=== PATIENT | female | born 1975 | race Two or more races ===

== ENCOUNTER 2017-07-07 07:44 | Emergency (ER) | payer OTHER ==
[2017-07-07] MEDS ORDERED: NAPROXEN 500 MG TABLET (FP) PO ONE (07:55)
[2017-07-07] MEDS ORDERED: CYCLOBENZAPRINE HCL 5 MG TABLET PO ONE (07:55)
--- NOTE | 2017-07-07 08:05 | PDOC ---
History of Present Illness - General Chief Complaint: Pain Stated Complaint: RT UPPER BACK PAIN Time Seen by Provider: 07/07/17 07:55 History Source: Patient Exam Limitations: No Limitations - History of Present Illness Initial Comments: 07/07/17 07:56 41 yo F c/ no pmh p/w right upper back spasm. 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 Better with rest, worsen with movement of back, neck, and right upper extremity. Denies numbness, weakness. Denies chest pain, SOB. Took 200 mg ibuprofen yesterday night with minimal relief. Past History - Past Medical History Allergies/Adverse Reactions: Allergies Allergy/AdvReac Type Severity Reaction Status Date / Time No Known Allergies Allergy Unverified 07/07/17 07:46 Home Medications: Ambulatory Orders Cyclobenzaprine HCl [Flexeril 10 mg] 10 mg PO Q8H PRN #21 tablet 07/07/17 Ibuprofen [Advil -] 200 mg PO PRN PRN 07/07/17 Naproxen 500 mg PO BID PRN #20 tablet 07/07/17 Review of Systems - Review of Systems Able to Perform ROS?: Yes Comments:: 07/07/17 08:05 GENERAL/CONSTITUTIONAL: No fever, weakness. HEAD, EYES, EARS, NOSE AND THROAT: No change in vision. No ear pain or discharge. No sore throat. CARDIOVASCULAR: No chest pain or shortness of breath. RESPIRATORY: No cough, wheezing, or hemoptysis. GASTROINTESTINAL: No abdominal pain, nausea, vomiting, diarrhea, or decreased PO intolerance. GENITOURINARY: No dysuria, frequency, or change in urination. MUSCULOSKELETAL: No joint or muscle swelling or pain. No neck pain. + back pain. SKIN: No rash NEUROLOGIC: No headache, vertigo, loss of consciousness, or change in strength/ sensation. ENDOCRINE: No increased thirst. No abnormal weight change. HEMATOLOGIC/LYMPHATIC: No anemia, easy bleeding, or history of blood clots. ALLERGIC/IMMUNOLOGIC: No hives or skin allergy. *Physical Exam - Physical Exam Comments: 07/07/17 08:07 GENERAL: Awake, alert, and fully oriented, in no acute distress. HEAD: No signs of trauma EYES: PERRLA, EOMI, sclera anicteric, conjunctiva clear ENT: Auricles normal inspection, hearing grossly normal, nares patent NECK: Normal ROM, supple BACK: TTP right upper back, reproducible with movements. RUE: 2+ radial pulse. Sensation and strength intact in median/radian/ulnar distribution. EXTREMITIES: Normal range of motion, no edema. No clubbing or cyanosis. No cords, erythema, or tenderness NEUROLOGICAL: Cranial nerves II through XII grossly intact. Normal speech, normal gait SKIN: Warm, Dry, normal turgor, no rashes or lesions noted. Medical Decision Making - Medical Decision Making 07/07/17 08:07 The H&P is consistent with upper back spasm. NSAIDS, muscle relaxants Heat pack. Time off from work 07/07/17 09:10 Pt reports feeling better. F/u with PMD I discussed the physical exam findings, ancillary test results and final diagnoses with the patient. I answered all of the patient's questions. The patient was satisfied with the care received and felt comfortable with the discharge plan and treatment plan. The patient will call their primary care physician within 24 hours to arrange follow-up and will return to the Emergency Department with any new, persistant or worsening symptoms. *DC/Admit/Observation/Transfer Diagnosis at time of Disposition: Back spasm - Discharge Dispostion Disposition: HOME Condition at time of disposition: Stable Decision to Admit order: No - Prescriptions Prescriptions: Cyclobenzaprine HCl [Flexeril 10 mg] 10 mg PO Q8H PRN #21 tablet PRN Reason: Muscle Spasms Naproxen 500 mg PO BID PRN #20 tablet PRN Reason: Pain - Referrals - Patient Instructions Printed Discharge Instructions: DI for Back Spasm Additional Instructions: Please take 500 mg naproxen every 12 hours as needed for pain. For additional relief, take a tablet of flexeril (muscle relaxant) every 8 hours as needed. Please be careful when taking this medication as it may make you drowsy. Drink plenty of fluids and rest. Use heat backs several times a day for several minutes at a time for your back. It will take several days before symptoms resolve. Please call your doctor and schedule a follow up appointment. - Post Discharge Activity Forms/Work/School Notes: Back to Work
[2017-07-07 08:06] VITALS: BP 103/69; PULSE 81; TEMP 98.4; BMI 25.7
[2017-07-07] MEDS ORDERED: CYCLOBENZAPRINE HCL 10 MG TABLET (FP) ONE (08:25)
[2017-07-07] MEDS ORDERED: NAPROXEN 500 MG TABLET (FP) ONE (08:25)
== END 2017-07-07 09:20 | disposition home or self-care (01) ==
LOC: FER 07:44
DX: M62.830 Muscle spasm of back (principal)
CPT/HCPCS: 84703; 99282-25

== ENCOUNTER 2019-03-13 07:57 | Inpatient (IN) | payer OTHER ==
[2019-03-13] MEDS ORDERED: ACETAMINOPHEN 1000 MG/100 ML VIAL (NON FORMULARY) IVPB ONE (08:35)
[2019-03-13] MEDS ORDERED: METOCLOPRAMIDE HCL INJECTION 10 MG/2 ML VIAL IVPUSH ONE (08:35)
[2019-03-13] MEDS ORDERED: SODIUM CHLORIDE 0.9% 1000 ML INFUS.BAG IV ONE (08:36)
[2019-03-13 08:38] LABS: BASO % 1.6 % (0-2.0); EOS % 1.3 % (0-4.5); HEMATOCRIT 40.7 % (32.4-45.2); HEMOGLOBIN 13.7 GM/dl (10.7-15.3); LYMPH % 22.9 % (8-40); MCHC 33.6 g/dl (32.0-36.0); MEAN CELL VOLUME 89.1 fl (80-96); MEAN PLT VOLUME 7.7 fl (7.5-11.1); MONO % 9.5 % (3.8-10.2); NEUT % 64.7 % (42.8-82.8); PLATELET COUNT 279 K/MM3 (134-434); RBC 4.56 M/mm3 (3.60-5.2); RDW 12.4 % (11.6-15.6); WHITE BLOOD COUNT 6.2 K/mm3 (4.0-10.8)
[2019-03-13] MEDS ORDERED: METOCLOPRAMIDE HCL INJECTION 10 MG/2 ML VIAL ONE (08:41)
[2019-03-13] MEDS ORDERED: ACETAMINOPHEN INJECTION 100 ML IVPB ONE (08:41)
--- NOTE | 2019-03-13 08:42 | PDOC ---
History of Present Illness - General Chief Complaint: Chest Pain Stated Complaint: chest pain Time Seen by Provider: 03/13/19 08:00 History Source: Patient Exam Limitations: No Limitations - History of Present Illness Initial Comments: 03/13/19 08:36 43 yo F with no pmhx here with c/o 5 days left sided headache, and left arm and leg heaviness. in addition c/o right lower quad pain. pt states she travels frequently for work, is [place], recently was in [place]. over last few weeks has been having intermittent arm pain, leg and arm weakness that would come and go. denies f/c yesterday developed left sided headache, and chest pain radiating to her left arm. feels as if her arm is asleep. and feels heavy. does c/o sob, which is worse with walking , chest pain is worse with walking. no rash. no recent leg swelling. no h/o pe or dvt. was worked up for a dvt 01/31 had bilat leg us which was negative per her report. no rash. no fever. does report recent cough starting this am. no h/o migraines but has had one similar headache in the past. pt states prior december 2018, she would get headaches occasionally. but since december 2018, shee seems to be getting headaches every week. never associated with chest pain or weakness in legs and arms. no associated n/v. no head trauma. 03/13/19 12:54 NIH Stroke Scale - Last Known Well Date/Time & Onset Date Last Known Well: 03/09/19 - Initial Evaluation Level of consciousness: Alert Ask patient the month and their age: Answers both correctly Ask patient to open & close eyes; make fist and let go: Obeys both correctly Best gaze (horizontal eye movement): Normal Visual field testing: No visual field loss Facial paresis (Show teeth/raise eyebrows/close eyes tight): Normal symmetrical movement Motor Function: Left Arm: Drift Motor Function: Right Arm: Normal (extends arm 90 (or 45) degrees for 10 seconds without drift Motor Function: Left Leg: Normal (extends leg 30 degrees for 5 seconds without drift) (weakness compared to right with symmetric testing against resistance, but no drift.) Motor Function: Right Leg: Normal (extends leg 30 degrees for 5 seconds without drift) Limb Ataxia: No ataxia Sensory(Use pinprick test arms,legs,trunk,face/side to side): Normal Best language (Describe picture, name items, read sentences): No Aphasia Dysarthria (read several words): Normal articulation Extinction and Inattention: No abnormality - Total Score NIH Stroke Scale Score: 1 Past History - Past Medical History Allergies/Adverse Reactions: Allergies Allergy/AdvReac Type Severity Reaction Status Date / Time No Known Allergies Allergy Verified 03/13/19 07:59 Home Medications: Ambulatory Orders NK [No Known Home Medication] 03/13/19 COPD: No - Psycho Social/Smoking Cessation Hx Smoking History: Never smoked Have you smoked in the past 12 months: No Hx Alcohol Use: No Drug/Substance Use Hx: No Substance Use Type: None Review of Systems - Review of Systems Constitutional: No: Chills HEENTM: No: Eye Pain Respiratory: Yes: Cough, Shortness of Breath Cardiac (ROS): Yes: Chest Pain ABD/GI: No: Nausea, Vomiting : No: Burning, Dysuria, Discharge Musculoskeletal: No: Back Pain Integumentary: No: Bruising, Change in Color Neurological: Yes: Headache, Numbness, Paresthesia, Weakness Psychiatric: No: Stressors, Sleep Pattern Change All Other Systems: Reviewed and Negative *Physical Exam - Vital Signs Last Vital Signs Temp Pulse Resp BP Pulse Ox 98.1 F 104 H 18 113/82 100 03/13/19 07:58 03/13/19 07:58 03/13/19 07:58 03/13/19 07:58 03/13/19 07:58 - Physical Exam 03/13/19 08:40 awake alert nad. lungs clear bilat heart rrr no mrg abd soft nt mild rlq ttp. no rebound no guarding. no cva tenderness. nuero alert oriented x 3. CN intact. VF intact. answers questions appropriately. speech clear. strength 4/5 left upper ext, left lower ext 4/5 right side 5/5. left temp art ttp. sensation decreased left leg compared to right. 03/13/19 08:44 Heart Score/ECG Review #1 ECG reviewed & interpreted by me at: 11:10 General ECG Interpretation: Sinus Rhythm, Normal Rate (67), Normal Intervals, No acute ischemic changes Compared to previous ECG there are: Other (TWI III only) ED Treatment Course - LABORATORY CBC & Chemistry Diagram: 03/13/19 08:30 03/13/19 08:30 - RADIOLOGY Radiology Studies Ordered: Category Date Time Status HEAD CT WITHOUT CONTRAST [CT] Stat CT Scan 03/13/19 08:25 Ordered CHEST X-RAY PORTABLE* [RAD] Stat Radiology 03/13/19 08:26 Ordered Medical Decision Making - Medical Decision Making 03/13/19 08:42 43 yo F frequent travels, here wit intermittent arm/ leg weakness, now cp sob and left arm and leg weakness. differential cva, ich, mass / tumor, cervical spine compression, pe considered. atypical migraine. plan labs ct head without. cxr. ekg trop. plan d dimer r/o pe/ dvt. pain control with reglan tylenol ivf. esr r/o temp arteritis. 03/13/19 11:41 pt headache is somewhat improved. repeat examination left arm weakness subtle but persistant. cta negative for dissection . ct head unremarkable. due to persistant weakness may warrant MRI head and neck. consulted nuerology DR Orosco. labs unremarkable. trop negative. ekg unremarkable. focused ED doppler bilat lower extremities performed, negative for proximal DVT recommend followup in 5 - 7 days as needed. 03/13/19 11:49 d/w dr orosco nuerology will see pt in hospital. 03/13/19 13:00 Discharge - Discharge Information Problems reviewed: Yes Clinical Impression/Diagnosis: Chest pain, Weakness Condition: Stable - Admission Yes - Follow up/Referral - Patient Discharge Instructions - Post Discharge Activity
[2019-03-13 09:13] LABS: INR 1.19 (0.82-1.09); PROTHROMBIN TIME (PATIENT) 13.3 SEC (10.2-13.0)
[2019-03-13 10:06] LABS: ALBUMIN 3.7 g/dl (3.4-5.0); BILIRUBIN,TOTAL 0.6 mg/dL (0.2-1); BLOOD UREA NITROGEN 13.5 mg/dL (7-18); CALCIUM 8.9 mg/dL (8.5-10.1); CREATININE 0.7 mg/dL (0.55-1.3); POTASSIUM 3.9 mmol/L (3.5-5.1); TOT PROT 6.8 g/dl (6.4-8.2)
--- NOTE | 2019-03-13 13:09 | HP ---
CHIEF COMPLAINT: Headache PCP: Dr. Leonidas Luna HISTORY OF PRESENT ILLNESS: 43 year-old female with a PMH significant for headaches, presented to the ED with a complaint of left-sided headache x 2 days. Patient developed a left- sided headache at work yesterday, took Tylenol with some relief. Woke up this morning with return of symptoms. Denies light or sound sensitivity. Patient also reports experiencing pins and needles sensation in her left upper extremity , numbness and weakness in her left lower extremity, and a pinching-type pain under her left breast since yesterday. Patient has had headaches in the past, has not sought medical treatment. LMP 03/05. 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 Smoking: never Alcohol: no Drugs: no Allergies No Known Allergies Allergy (Verified 03/13/19 07:59) HOME MEDICATIONS: Home Medications Medication Instructions Recorded NK [No Known Home Medication] 03/13/19 REVIEW OF SYSTEMS CONSTITUTIONAL: Absent: fever, chills, diaphoresis, generalized weakness, malaise, loss of appetite, weight change HEENT: Absent: rhinorrhea, nasal congestion, throat pain, throat swelling, difficulty swallowing, mouth swelling, ear pain, eye pain, visual changes CARDIOVASCULAR: Absent: chest pain, syncope, palpitations, irregular heart rate, lightheadedness , peripheral edema RESPIRATORY: Absent: cough, shortness of breath, dyspnea with exertion, orthopnea, wheezing, stridor, hemoptysis GASTROINTESTINAL: Absent: abdominal pain, abdominal distension, nausea, vomiting, diarrhea, constipation, melena, hematochezia GENITOURINARY: Absent: dysuria, frequency, urgency, hesitancy, hematuria, flank pain, genital pain MUSCULOSKELETAL: Absent: myalgia, arthralgia, joint swelling, back pain, neck pain SKIN: Absent: rash, itching, pallor HEMATOLOGIC/IMMUNOLOGIC: Absent: easy bleeding, easy bruising, lymphadenopathy, frequent infections ENDOCRINE: Absent: unexplained weight gain, unexplained weight loss, heat intolerance, cold intolerance NEUROLOGIC: +headache, LUE paresthesia, LLE numbness and weakness Absent: focal weakness, dizziness, unsteady gait, seizure, mental status changes , bladder or bowel incontinence PSYCHIATRIC: Absent: anxiety, depression, suicidal or homicidal ideation, hallucinations. PHYSICAL EXAMINATION Vital Signs - 24 hr 03/13/19 03/13/19 03/13/19 07:58 10:05 11:41 Temperature 98.1 F Pulse Rate 104 H Pulse Rate [ 55 L 60 Apical] Respiratory 18 18 17 Rate Blood Pressure 113/82 Blood Pressure 100/71 103/62 [Left Arm] O2 Sat by Pulse 100 100 100 Oximetry (%) GENERAL: Awake, alert, and fully oriented, in no acute distress. Appears anxious. HEAD: Normal with no signs of trauma. EYES: Pupils equal, round and reactive to light, extraocular movements intact, sclera anicteric, conjunctiva clear. No lid lag. NECK: +tenderness over SCM LUNGS: Breath sounds equal, clear to auscultation HEART: Regular rate and rhythm, normal S1 and S2 ABDOMEN: Soft, nontender, not distended UPPER EXTREMITIES: 2+ pulses, warm, well-perfused. No cyanosis. No clubbing. No peripheral edema. 4/5 motor LUE, sensory intact LOWER EXTREMITIES: 2+ pulses, warm, well-perfused. No calf tenderness. No peripheral edema. 4/5 motor LLE, sensory intact NEUROLOGICAL: Cranial nerves II-XII intact. Normal speech. . Laboratory Results - last 24 hr 03/13/19 03/13/19 03/13/19 08:30 08:30 08:30 WBC 6.2 RBC 4.56 Hgb 13.7 Hct 40.7 MCV 89.1 MCH 30.0 MCHC 33.6 RDW 12.4 Plt Count 279 MPV 7.7 Absolute Neuts (auto) 4.0 Neutrophils % 64.7 Lymphocytes % 22.9 Monocytes % 9.5 Eosinophils % 1.3 Basophils % 1.6 ESR 16 PT with INR INR D-Dimer Sodium 139 Potassium 3.9 Chloride 109 H Carbon Dioxide 25 Anion Gap 4 L BUN 13.5 Creatinine 0.7 Est GFR (CKD-EPI)AfAm 122.13 Est GFR (CKD-EPI)NonAf 105.37 Random Glucose 89 Calcium 8.9 Total Bilirubin 0.6 AST 15 ALT 26 Alkaline Phosphatase 86 Troponin I Total Protein 6.8 Albumin 3.7 POC Urine HCG, Qual 03/13/19 03/13/19 03/13/19 08:30 08:30 08:53 WBC RBC Hgb Hct MCV MCH MCHC RDW Plt Count MPV Absolute Neuts (auto) Neutrophils % Lymphocytes % Monocytes % Eosinophils % Basophils % ESR PT with INR 13.3 H INR 1.19 D-Dimer 263 Sodium Potassium Chloride Carbon Dioxide Anion Gap BUN Creatinine Est GFR (CKD-EPI)AfAm Est GFR (CKD-EPI)NonAf Random Glucose Calcium Total Bilirubin AST ALT Alkaline Phosphatase Troponin I < 0.03 Total Protein Albumin POC Urine HCG, Qual 03/13/19 09:17 WBC RBC Hgb Hct MCV MCH MCHC RDW Plt Count MPV Absolute Neuts (auto) Neutrophils % Lymphocytes % Monocytes % Eosinophils % Basophils % ESR PT with INR INR D-Dimer Sodium Potassium Chloride Carbon Dioxide Anion Gap BUN Creatinine Est GFR (CKD-EPI)AfAm Est GFR (CKD-EPI)NonAf Random Glucose Calcium Total Bilirubin AST ALT Alkaline Phosphatase Troponin I Total Protein Albumin POC Urine HCG, Qual Negative ASSESSMENT/PLAN: 43 year-old female with a PMH significant for headaches, admitted for r/o TIA v. CVA. r/o TIA v. CVA --03/13 CT head: no acute pathology --03/13 MRI/MRA brain and neck: no acute pathology --03/13 Echo: LV normal; RV not well visualized; trace to mild MR; mild PI; mild TR --seen and evaluated by neurology, normal neuro exam Migraine headache --began migraine prophylaxis with topiramate --Mirapax for RLS symptoms --follow up as outpatient Visit type - Emergency Visit Emergency Visit: Yes ED Registration Date: 03/13/19 Care time: The patient presented to the Emergency Department on the above date and was hospitalized for further evaluation of their emergent condition. - New Patient This patient is new to me today: Yes Date on this admission: 03/27/19 - Critical Care Critical Care patient: No
[2019-03-13] MEDS ORDERED: ASPIRIN 325 MG TABLET PO ONE (14:00)
--- NOTE | 2019-03-13 15:48 | ECHO ---
Name: ALEKS PETTIT Exam:Adult Echocardiogram Study Date: 03/13/2019 02:04 PM Age: 43 yrs Reason For Study: NIKOLAY MOORE Height: 65 in Weight: 170 lb BSA: 1.8 m2 MMode/2D Measurements & Calculations IVSd: 0.87 cm Ao root diam: 2.4 cm LVIDd: 4.4 cm LA dimension: 3.1 cm LVIDs: 2.8 cm LVPWd: 0.76 cm EDV(Teich): 86.7 ml LVOT diam: 2.0 cm ESV(Teich): 29.0 ml Doppler Measurements & Calculations MV E max virginia: 102.2 cm/sec MV A max virginia: 61.8 cm/sec MV dec slope: 625.8 cm/sec2 MV E/A: 1.7 Ao V2 max: 120.9 cm/sec LV V1 max P.0 mmHg Ao max P.9 mmHg LV V1 max: 99.6 cm/sec MICHAEL(V,D): 2.6 cm2 TR max virginia: 212.9 cm/sec PA V2 max: 112.5 cm/sec TR max P.1 mmHg PA max P.1 mmHg PI end-d virginia: 70.7 cm/sec Procedure A two-dimensional transthoracic echocardiogram with color flow and Doppler was performed. Left Ventricle The left ventricular size, thickness and function are normal. The left ventricular ejection fraction is normal. The left ventricular wall motion is normal. Right Ventricle The right ventricle is not well visualized. Atria Normal left and right atrial size and function. Mitral Valve There is mild mitral valve thickening. There is no mitral valve stenosis. There is trace to mild mitr al regurgitation. Tricuspid Valve There is mild tricuspid valve thickening. There is no tricuspid stenosis. There is mild tricuspid regurgitation. Right ventricular systolic pressure is normal. Aortic Valve The aortic valve is normal in structure and function. No hemodynamically significant valvular aortic stenosis. No aortic regurgitation is present. Pulmonic Valve The pulmonic valve is not well visualized. There is no pulmonic valvular stenosis. Mild pulmonic valv ular regurgitation. Great Vessels The aortic root is normal size. Pericardium/Pleura There is no pericardial effusion. Interpretation Summary The left ventricular size, thickness and function are normal The left ventricular ejection fraction is normal. The left ventricular wall motion is normal. There is trace to mild mitral regurgitation. Mild pulmonic valvular regurgitation. There is mild tricuspid regurgitation. Right ventricular systolic pressure is normal. MD Ralph Arrington 03/13/2019 03:48 PM
[2019-03-13 16:23] VITALS: BMI 28.4
[2019-03-13 17:38] LABS: CHOLESTEROL 136 mg/dl (50-200); HDL CHOLESTEROL 47 mg/dl (40-60); LDL CHOLESTEROL (ONLY DFH) 84 mg/dl (5-100); TRIGLYCERIDES 24 mg/dl (0-150)
[2019-03-13] MEDS ORDERED: ACETAMINOPHEN 325 MG TABLET (FP) PO PRN (20:34)
--- NOTE | 2019-03-13 21:57 | CONSULT ---
Consult - text type - Consultation Consultation Note: NEUROLOGY CONSULTATION is greatly appreciated: Events reviewed and discussed with Dr. Mansfield earlier today. Patient examined. 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 PMH of migraine headaches. Usually catamenial plus fe per month but recently increasing in frequency with irregular periods. Now CULVER's approx 2-3/week. Can wake her up or be present in morning upon awakening. Temporal onset into rock- or holo-cranial throbbing headaches with nausea., photphobia. Recent onset of headaches in her daughter. Now admitted after three days of continuous headache, worst this morning with chest pain and weakness left side. ROS sig for worsening insomnia with aching, "swollen" feelings in her legs. Worst on recent plane trips to the [place]. CT and MRI of the brain (all reviewed): Normal ROMÁN: Neck supple. no bruits, Cor reg. 175 lbs. NEURO: MS. speech: Normal CN II-XII: Normal Motor: No drift. Normal strength and FORD's. Normal reflexes. Toes downgoing. Coord: No FTN dystaxia Sensory: Decreased to all modalities diffusely on the left. Tuning fork splits the sternum gait: Normal IMP: Normal neurological exam. Non-physiological sensory patterns. Migraine headaches. Restless Limbs Syndrome (RLS). SUGGEST: Begin migraine prophylaxis with topiramate 25 BID x 3 days than 50 BID Rx Pramipexole 0.125 mg PO QHS x 4 days then 0.25 qHS for leg pains and sleep. Check Fe++, TIBC, Ferritin Neuro f/u as out patient. Thank you very much, Shawn Orosco MD
[2019-03-13] MEDS ORDERED: PRAMIPEXOLE DIHYDROCHLORIDE 0.125 MG TABLET PO SCH (22:00)
[2019-03-13] MEDS: TOPIRAMATE 25 MG TABLET (FP) PO SCH (23:58)
[2019-03-14 08:17] LABS: ALBUMIN 3.5 g/dl (3.4-5.0); BILIRUBIN,TOTAL 0.7 mg/dl (0.2-1); CALCIUM 8.3 mg/dl (8.5-10); CREATININE 0.6 mg/dl (0.55-1.3); MAGNESIUM 1.9 mg/dL (1.8-2.4); TOT PROT 5.9 g/dl (6.4-8.2)
[2019-03-14 08:26] LABS: BASO % 0.6 % (0-2.0); EOS % 1.6 % (0-4.5); HEMATOCRIT 38.2 % (32.4-45.2); HEMOGLOBIN 13.1 GM/dl (10.7-15.3); MCH 30.5 pg (25.7-33.7); MCHC 34.2 g/dl (32.0-36.0); MEAN CELL VOLUME 89.2 fl (80-96); MONO % 8.5 % (3.8-10.2); NEUT % 65.3 % (42.8-82.8); PLATELET COUNT 234 K/MM3 (134-434); RBC 4.28 M/mm3 (3.60-5.2); RDW 12.9 % (11.6-15.6); WHITE BLOOD COUNT 5.3 K/mm3 (4.0-10.8)
[2019-03-14] MEDS: TOPIRAMATE 25 MG TABLET (FP) PO SCH (09:39)
[2019-03-14 09:51] VITALS: BP 102/66; PULSE 81; TEMP 99.1
--- NOTE | 2019-03-14 12:01 | DS ---
Physical Exam: SUBJECTIVE: Patient seen and examined OBJECTIVE: Vital Signs Period Temp Pulse Resp BP Sys/[place] Pulse Ox Last 24 Hr 97.7 F-99.1 F 62-81 17-20 94-106/57-69 98-100 PHYSICAL EXAM GENERAL: Awake, alert, and fully oriented, in no acute distress. Appears anxious. HEAD: Normal with no signs of trauma. EYES: Pupils equal, round and reactive to light, extraocular movements intact, sclera anicteric, conjunctiva clear. No lid lag. NECK: +tenderness over SCM LUNGS: Breath sounds equal, clear to auscultation HEART: Regular rate and rhythm, normal S1 and S2 ABDOMEN: Soft, nontender, not distended UPPER EXTREMITIES: 2+ pulses, warm, well-perfused. No cyanosis. No clubbing. No peripheral edema. 4/5 motor LUE, sensory intact LOWER EXTREMITIES: 2+ pulses, warm, well-perfused. No calf tenderness. No peripheral edema. 4/5 motor LLE, sensory intact NEUROLOGICAL: Cranial nerves II-XII intact. Normal speech. LABS Laboratory Results - last 24 hr 03/13/19 03/13/19 03/13/19 09:17 17:00 17:00 WBC RBC Hgb Hct MCV MCH MCHC RDW Plt Count MPV Absolute Neuts (auto) Neutrophils % Lymphocytes % Monocytes % Eosinophils % Basophils % Sodium Potassium Chloride Carbon Dioxide Anion Gap BUN Creatinine Est GFR (CKD-EPI)AfAm Est GFR (CKD-EPI)NonAf Random Glucose Calcium Magnesium Total Bilirubin AST ALT Alkaline Phosphatase Creatine Kinase Troponin I < 0.03 Total Protein Albumin Triglycerides 24 Cholesterol 136 Total LDL Cholesterol 84 HDL Cholesterol 47 POC Urine HCG, Qual Negative 03/13/19 03/14/19 03/14/19 17:00 03:00 07:29 WBC 5.3 RBC 4.28 Hgb 13.1 Hct 38.2 MCV 89.2 MCH 30.5 MCHC 34.2 RDW 12.9 Plt Count 234 MPV 8.0 Absolute Neuts (auto) 3.4 Neutrophils % 65.3 Lymphocytes % 24.0 Monocytes % 8.5 Eosinophils % 1.6 Basophils % 0.6 Sodium Potassium Chloride Carbon Dioxide Anion Gap BUN Creatinine Est GFR (CKD-EPI)AfAm Est GFR (CKD-EPI)NonAf Random Glucose Calcium Magnesium Total Bilirubin AST ALT Alkaline Phosphatase Creatine Kinase 60 51 Troponin I < 0.02 Total Protein Albumin Triglycerides Cholesterol Total LDL Cholesterol HDL Cholesterol POC Urine HCG, Qual 03/14/19 07:29 WBC RBC Hgb Hct MCV MCH MCHC RDW Plt Count MPV Absolute Neuts (auto) Neutrophils % Lymphocytes % Monocytes % Eosinophils % Basophils % Sodium 136 Potassium 4.0 Chloride 106 Carbon Dioxide 23 Anion Gap 7 L BUN 10.0 Creatinine 0.6 Est GFR (CKD-EPI)AfAm 128.48 Est GFR (CKD-EPI)NonAf 110.86 Random Glucose 87 Calcium 8.3 L Magnesium 1.9 Total Bilirubin 0.7 AST 15 ALT 18 Alkaline Phosphatase 62 Creatine Kinase Troponin I Total Protein 5.9 L Albumin 3.5 Triglycerides Cholesterol Total LDL Cholesterol HDL Cholesterol POC Urine HCG, Qual HOSPITAL COURSE: Date of Admission:03/13/19 Date of Discharge: 03/14/19 Pre hospital course 43 year-old female with a PMH significant for headaches, presented to the ED with a complaint of left-sided headache x 2 days. Patient developed a left- sided headache at work yesterday, took Tylenol with some relief. Woke up this morning with return of symptoms. Denies light or sound sensitivity. Patient also reports experiencing pins and needles sensation in her left upper extremity , numbness and weakness in her left lower extremity, and a pinching-type pain under her left breast since yesterday. Patient has had headaches in the past, has not sought medical treatment. LMP 03/05. ER course (1) CT head: no acute process Subsequent hospital course 43 year-old female with a PMH significant for headaches, admitted for r/o TIA v. CVA. r/o TIA v. CVA --03/13 CT head: no acute pathology --03/13 MRI/MRA brain and neck: no acute pathology --03/13 Echo: LV normal; RV not well visualized; trace to mild MR; mild PI; mild TR --seen and evaluated by neurology, normal neuro exam Migraine headache --began migraine prophylaxis with topiramate --Mirapax for RLS symptoms --follow up as outpatient Minutes to complete discharge: 35 Discharge Summary Problems reviewed: Yes Reason For Visit: CHEST PAIN, WEAKNESS Current Active Problems Chest pain (Acute) Weakness (Acute) Condition: Improved - Instructions Diet, Activity, Other Instructions: Two prescriptions have been sent to your pharmacy prescribed by Dr. Orosco. Take these medications as directed. You should follow up with your primary care provider, Dr. Leonidas Luna, within one week of your discharge. Referrals: Leonidas Luna MD [Non Staff, Medical] - Disposition: HOME - Home Medications Comprehensive Discharge Medication List: Ambulatory Orders NK [No Known Home Medication] 03/13/19 This patient is new to me today: No Emergency Visit: Yes ED Registration Date: 03/13/19 Care time: The patient presented to the Emergency Department on the above date and was hospitalized for further evaluation of their emergent condition. Critical Care patient: No - Discharge Referral Referred to [facility] No
--- NOTE | 2019-03-14 12:43 | EKG ---
Test Reason : Blood Pressure : / mmHG Vent. Rate : 067 BPM Atrial Rate : 067 BPM P-R Int : 130 ms QRS Dur : 078 ms QT Int : 392 ms P-R-T Axes : 061 017 024 degrees QTc Int : 414 ms NORMAL SINUS RHYTHM NORMAL ECG NO PREVIOUS ECGS AVAILABLE Confirmed by LUCY HOLLEY MD ([id number]) on 03/14/2019 12:42:46 PM Referred By: JOSUE MALONE Confirmed By:LUCY HOLLEY MD
[2019-03-14] MEDS ORDERED: PRAMIPEXOLE DIHYDROCHLORIDE 0.25 MG TABLET PO SCH (22:00)
== END 2019-03-14 13:11 | disposition home or self-care (01) | DRG 54 ==
LOC: FER 07:57 → FM/S 11:48
PROVIDERS: ADMIT Internal Medicine; ATTEND Nurse Practitioner Acute Care
DX: G43.909 Migraine, unspecified, not intractable, without status migrainosus (principal); G25.81 Restless legs syndrome; R07.89 Other chest pain
CPT/HCPCS: 36415; 70450-TC; 70544-TC; 70547-TC; 70551-TC; 71045-TC-FY; 71275-TC; 74174-TC; 80053; 80061; 81025; 82550; 83735; 84484; 85025; 85379; 85610; 85651; 93005; 93306-TC; 93970; 97116-GP; 97161-GP; 99285-25; J0131; J7030; Q9967

== ENCOUNTER 2019-09-15 22:37 | Emergency (ER) | payer OTHER ==
[2019-09-15 22:47] VITALS: BP 113/83; PULSE 97; TEMP 98.3; BMI 29.2
[2019-09-15] MEDS ORDERED: KETOROLAC TROMETHAMINE 60 MG/2 ML VIAL ONE (22:48)
[2019-09-15] MEDS ORDERED: IBUPROFEN 600 MG TABLET (FP) PO ONE ×2 (22:50→22:51)
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
== END 2019-09-15 23:32 | disposition home or self-care (01) ==
LOC: FER 22:37
DX: S13.4XXA Sprain of ligaments of cervical spine, initial encounter (principal)
CPT/HCPCS: 72050-TC-FY; 72070-TC-FY; 99284-25

== ENCOUNTER 2021-07-21 19:03 | Emergency (ER) | payer OTHER ==
[2021-07-21 19:23] VITALS: BP 106/67; PULSE 92; TEMP 98.9
[2021-07-21 19:55] LABS: HEMATOCRIT 37.6 % (32.4-45.2); HEMOGLOBIN 13.2 G/dL (10.7-15.3); MCH 30.7 pg (25.7-33.7); MEAN CELL VOLUME 87.8 fl (80-96); MEAN PLT VOLUME 7.1 fl (7.5-11.1); PLATELET COUNT 232.2 10^3/uL (134-434); RBC 4.28 10^6/uL (3.60-5.2); RDW 13.9 % (11.6-15.6); WHITE BLOOD COUNT 8.8 10^3/uL (4.0-10.8)
[2021-07-21 20:09] LABS: ALBUMIN 3.8 g/dl (3.4-5.0); BILIRUBIN,TOTAL 0.4 mg/dl (0.2-1); CALCIUM 8.8 mg/dl (8.5-10); CREATININE 0.9 mg/dl (0.55-1.3); TOT PROT 6.2 g/dl (6.4-8.2)
[2021-07-21 20:13] LABS: PLATELET ESTIMATE ADEQUATE
[2021-07-21] MEDS ORDERED: METOCLOPRAMIDE HCL INJECTION 10 MG/2 ML VIAL IVPUSH ONE (21:09)
[2021-07-21] MEDS ORDERED: KETOROLAC TROMETHAMINE 30 MG/1 ML VIAL IVPUSH ONE (21:09)
[2021-07-21] MEDS ORDERED: KETOROLAC TROMETHAMINE 30 MG/1 ML VIAL ONE (21:11)
[2021-07-21] MEDS ORDERED: METOCLOPRAMIDE HCL INJECTION 10 MG/2 ML VIAL ONE (21:11)
== END 2021-07-21 21:16 | disposition home or self-care (01) ==
LOC: FER 19:03
PROC: 3E0333Z Introduction of Anti-inflammatory into Peripheral Vein, Percutaneous Approach (ICD-10-PCS; principal; 2021-07-21)
PROC: 3E033GC Introduction of Other Therapeutic Substance into Peripheral Vein, Percutaneous Approach (ICD-10-PCS; 2021-07-21)
DX: R05.1 Acute cough (principal); M79.10 Myalgia, unspecified site
CPT/HCPCS: 0241U-QW; 36415; 70450-TC; 71045-TC-FY; 80053; 85025; 99285-25

== ENCOUNTER 2023-08-28 21:30 | Emergency (ER) | payer OTHER ==
[2023-08-28 21:40] VITALS: BP 109/71; PULSE 69; RESP 20; TEMP 98.2; BMI 32.8
[2023-08-28] MEDS ORDERED: ALBUTEROL SO4 2.5/IPRATROPIUM 0.5 INH SOL 3 ML VIAL.NEB. NEB ONE (22:22)
[2023-08-28] MEDS: ALBUTEROL SO4 2.5/IPRATROPIUM 0.5 INH SOL 3 ML VIAL.NEB. NEB ONE (22:24)
[2023-08-28 22:30] LABS: HEMATOCRIT 40.3 % (32.4-45.2); HEMOGLOBIN 12.9 G/dL (10.7-15.3); MCH 29.1 pg (25.7-33.7); MEAN CELL VOLUME 90.9 fl (80-96); MEAN PLT VOLUME 7.3 fl (7.5-11.1); PLATELET COUNT 221.1 10^3/uL (134-434); RBC 4.43 10^6/uL (3.60-5.2); WHITE BLOOD COUNT 7.4 10^3/uL (4.0-10.8)
[2023-08-28 22:33] LABS: HCG,QUALITATIVE URINE Negative
[2023-08-28 22:42] LABS: PLATELET ESTIMATE ADEQUATE
[2023-08-28 22:58] LABS: ALBUMIN 4.4 g/dl (3.4-5.0); BILIRUBIN,TOTAL 0.4 mg/dl (0.2-1); CALCIUM 9.9 mg/dl (8.5-10.1); CREATININE 1.1 mg/dl (0.6-1.3); POTASSIUM 4.1 mmol/L (3.5-5.1); TOT PROT 6.6 g/dl (6.4-8.2)
== END 2023-08-28 23:26 | disposition home or self-care (01) ==
LOC: FER 21:30
PROC: 3E0F7GC Introduction of Other Therapeutic Substance into Respiratory Tract, Via Natural or Artificial Opening (ICD-10-PCS; principal; 2023-08-28)
DX: M25.462 Effusion, left knee (principal); J40 Bronchitis, not specified as acute or chronic; R06.02 Shortness of breath; R05.9 Cough, unspecified; R50.9 Fever, unspecified; R09.81 Nasal congestion; Z20.822 Contact with and (suspected) exposure to COVID-19
CPT/HCPCS: 0241U-QW; 36415; 80053; 81003; 84703; 85027; 94640; 99283-25